=== PATIENT | female | born 1970 | race Caucasian/White ===

== ENCOUNTER 2016-11-27 14:59 | Emergency (ER) | payer MEDICARE, MEDICAID ==
[2016-11-27 15:16] VITALS: RESP 18; TEMP 98.2
--- NOTE | 2016-11-27 16:26 | C.PDOC ---
History Of Present Illness 46-year-old female, PMHx includes Left knee OA s/p orthoscopic surgery 1 yr ago , comes in for evaluation of Left knee pain that worsened this morning while at PT. Pain is aching, constant but worse with knee bending. Secondary complaint is non-traumatic low back pain. Pt denies known direct trauma or injury, fever, chills, skin changes over knee, swelling, denies deformity, weakness, sensory or vascular deficits to Left leg, denies left calf pain. Pt was seen in ED 07/27 for same complaint. Chief Complaint (Nursing): Lower Extremity Problem/Injury History Per: Patient History/Exam Limitations: no limitations Past Medical History Reviewed: Historical Data, Nursing Documentation, Vital Signs Vital Signs: Last Vital Signs Temp 98.2 F 11/27/16 15:13 Pulse 67 11/27/16 15:13 Resp 18 11/27/16 15:13 BP 123/70 11/27/16 15:13 Pulse Ox 100 11/27/16 16:30 - Medical History PMH: Arthritis, Back Problems, Depression Family History: States: Unknown Family Hx - Social History Hx Tobacco Use: No Hx Alcohol Use: No Hx Substance Use: No - Immunization History Hx Tetanus Toxoid Vaccination: No Hx Influenza Vaccination: No Hx Pneumococcal Vaccination: No Review Of Systems Except As Marked, All Systems Reviewed And Found Negative. Constitutional: Negative for: Fever Cardiovascular: Negative for: Chest Pain Respiratory: Negative for: Shortness of Breath Gastrointestinal: Negative for: Vomiting Musculoskeletal: Positive for: Back Pain, Leg Pain Skin: Negative for: Rash Physical Exam - Physical Exam Appears: Non-toxic, No Acute Distress Skin: Warm, Dry, No Rash Eye(s): bilateral: Normal Inspection, PERRL Nose: Normal Oral Mucosa: Moist Neck: Normal ROM Respiratory: No Accessory Muscle Use Extremity: Tenderness, No Calf Tenderness, Capillary Refill (<2 seconds), No Deformity, Other Pulses: Left Femoral: Normal, Right Femoral: Normal, Left Dorsalis Pedis: Normal , Right Dorsalis Pedis: Normal Neurological/Psych: Oriented x3, Normal Speech ED Course And Treatment O2 Sat by Pulse Oximetry: 100 Disposition - Disposition Referrals: Eduard Adame, [Non-Staff] - Disposition: HOME/ ROUTINE Disposition Time: 18:30 Condition: GOOD Additional Instructions: Thank you for letting us take care of you today. Your provider was Dr. Basilio. You were treated for knee pain. The emergency medical care you received today was directed at your acute symptoms. If you were prescribed any medication, please fill it and take as directed. It may take several days for your symptoms to resolve. Return to the Emergency Department if your symptoms worsen, do not improve, or if you have any other problems. Please contact your doctor or call one of the physicians/clinics you have been referred to that are listed on the Patient Visit Information form that is included in your discharge packet. Bring any paperwork you were given at discharge with you along with any medications you are taking to your follow up visit. Our treatment cannot replace ongoing medical care by a primary care provider (PCP) outside of the emergency department. Thank you for allowing the [facility] team to be part of your care today. Do not put any weight on your left leg and follow up with your doctor tomorrow as scheduled. Prescriptions: Cyclobenzaprine [Cyclobenzaprine HCl] 10 mg PO Q8 PRN #20 tab PRN Reason: Muscle Spasm Ibuprofen [Motrin] 600 mg PO Q6 PRN #20 tab PRN Reason: Pain, Moderate (4-7) Instructions: Knee Pain (ED), Crutch Instructions (ED) Forms: Gen Discharge Inst Jamaican Print Language: MALAYSIAN - Clinical Impression Clinical Impression: Knee pain - Scribe Statement The provider has reviewed the documentation as recorded by the Toby Eagle All medical record entries made by the Pauloibmelodie were at my direction and personally dictated by me. I have reviewed the chart and agree that the record accurately reflects my personal performance of the history, physical exam, medical decision making, and the department course for this patient. I have also personally directed, reviewed, and agree with the discharge instructions and disposition.
--- NOTE | 2016-11-27 17:34 | RAD ---
PROCEDURE: Radiographs of the Lumbar Spine. HISTORY: r/o fx COMPARISON: No prior. FINDINGS: BONES: No acute compression fractures no retropulsed fragments. There is a minor low roto evoscoliosis of the lumbar spine. DISC SPACES: Mild disc space narrowing L5-S1 level more so along the posterior disc margin. . Remaining disc space heights are relatively maintained. OTHER FINDINGS: None. IMPRESSION: No acute fractures. Mild degenerative spondylosis L5-S1 level. Minor levoscoliosis as described
--- NOTE | 2016-11-27 17:37 | RAD ---
PROCEDURE: Pelvis left hip dated 11/27/2016 HISTORY: r/o fx COMPARISON: Comparison made with prior radiographs of the left hip and left femur 10/27/2014 TECHNIQUE: AP views of the pelvis left hip and frogleg lateral view left hip performed FINDINGS: Current study reveals no evidence of acute displaced fracture nor dislocation. The osseous structures intact. Both femoral heads are appropriately located within the respective acetabula. Joint spaces appear relatively preserved. Note again made of multiple tiny calcifications likely representing calcified pelvic phleboliths overlying the inferior aspect of the true pelvis bilateral IMPRESSION: No acute fractures. Consider followup studies if symptoms persist or occult fracture suspected clinically
[2016-11-27 19:07] VITALS: BP 109/76; PULSE 82; O2SAT 98
--- NOTE | 2016-11-28 07:22 | RAD ---
PROCEDURE: Left Knee Radiographs. HISTORY: Pain. COMPARISON: None. FINDINGS: BONES: Normal. No fracture. JOINTS: Mild osteoarthritic changes are noted. JOINT EFFUSION: No significant joint effusion noted. OTHER FINDINGS: None. IMPRESSION: No evidence of acute fracture or dislocation. Mild osteoarthritic changes.
== END 2016-11-27 19:06 | disposition home or self-care (01) ==
LOC: C.ER 14:59
DX: M25.562 Pain in left knee (principal)

== ENCOUNTER 2017-03-14 23:26 | Emergency (ER) | payer MEDICARE, MEDICAID ==
[2017-03-14 23:49] VITALS: BP 110/71; PULSE 71; RESP 18; TEMP 97.8; O2SAT 98
--- NOTE | 2017-03-15 00:24 | C.PDOC ---
History Of Present Illness 46 year old female presents to the ED with complaints of increasing pain to the left knee radiating to left thigh beginning yesterday after PT. Patient notes a history of a left knee replacement in February 2017 and is compliant with medications usually with relief but with no relief of pain. She denies recent trauma or fever. Time Seen by Provider: 03/14/17 23:50 Chief Complaint (Nursing): Lower Extremity Problem/Injury History/Exam Limitations: no limitations Onset/Duration Of Symptoms: Worse Since (increasing pain today ) Current Symptoms Are (Timing): Still Present Recent travel outside of the [place]: No Additional History Per: Prior Records - Knee Description Of Injury: Other (Knee replacement in February 2017 ) Past Medical History Reviewed: Historical Data, Nursing Documentation, Vital Signs Vital Signs: Last Vital Signs Temp 97.8 F 03/14/17 23:45 Pulse 71 03/14/17 23:45 Resp 18 03/14/17 23:45 BP 110/71 03/14/17 23:45 Pulse Ox 98 03/15/17 04:09 - Medical History PMH: Arthritis, Back Problems, Depression Family History: States: Unknown Family Hx - Social History Hx Tobacco Use: No Hx Alcohol Use: No Hx Substance Use: No - Immunization History Hx Tetanus Toxoid Vaccination: No Hx Influenza Vaccination: No Hx Pneumococcal Vaccination: No Review Of Systems Constitutional: Negative for: Fever, Chills Cardiovascular: Negative for: Chest Pain Respiratory: Negative for: Shortness of Breath Gastrointestinal: Negative for: Nausea, Vomiting, Abdominal Pain, Diarrhea Musculoskeletal: Positive for: Leg Pain (left knee pain radiating to left thigh ) Physical Exam - Physical Exam Appears: Non-toxic, No Acute Distress Skin: Warm, Dry Head: Atraumatic Eye(s): bilateral: Normal Inspection, PERRL, EOMI Oral Mucosa: Moist Neck: Supple Chest: Symmetrical, No Deformity Cardiovascular: Rhythm Regular Respiratory: Normal Breath Sounds, No Rhonchi, No Wheezing Extremity: Normal ROM (Full ROM however causes pain in left knee ), Tenderness ( on palpation), Capillary Refill (good capillary refill, less than 2 seconds ), No Deformity, Swelling (minimal swelling to the left knee. No erythema and no warmth. ), Other (scar to anterior aspect of the left knee, no erythema, no warmth) Extremity: Bilateral: Normal Color And Temperature Neurological/Psych: Oriented x3, Normal Speech, Normal Cognition, Normal Cranial Nerves, Normal Motor, Normal Sensation Gait: Steady (with mild limp) ED Course And Treatment O2 Sat by Pulse Oximetry: 98 (room air ) Pulse Ox Interpretation: Normal Progress Note: Patient refused Knee XR- states will see orthopedist in 1- 2 days and was given Toradol IM and instructed to follow up with orthopedist. Disposition Counseled Patient/Family Regarding: Diagnosis, Need For Followup, Rx Given - Disposition Referrals: Your orthopedist, private [Other] Disposition: HOME/ ROUTINE Disposition Time: 00:25 Condition: STABLE Additional Instructions: Elevate leg Apply ICE Use knee brace for support Continue current pain meds Return to ER if worse Instructions: Knee Pain (ED) Forms: [email or web address] (Chadian) Print Language: PUERTO RICAN - Clinical Impression Clinical Impression: Knee pain - Scribe Statement The provider has reviewed the documentation as recorded by the Scribe Varsha Cassidy All medical record entries made by the Scribe were at my direction and personally dictated by me. I have reviewed the chart and agree that the record accurately reflects my personal performance of the history, physical exam, medical decision making, and the department course for this patient. I have also personally directed, reviewed, and agree with the discharge instructions and disposition.
== END 2017-03-15 00:42 | disposition home or self-care (01) ==
LOC: C.ER 23:26
DX: M25.562 Pain in left knee (principal)
CPT/HCPCS: 96372; 99283; J1885

== ENCOUNTER 2017-09-28 18:09 | Emergency (ER) | payer MEDICARE, MEDICAID ==
[2017-09-28 19:55] VITALS: O2SAT 100
--- NOTE | 2017-09-28 20:37 | C.PDOC ---
History Of Present Illness 47 year old female presents to the ED for evaluation of flu like symptoms x2-3 days. Patient complains of body aches, fevers, cough, and sore throat. No vomiting or diarrhea. No recent travel. No other acute complaints at this time. Time Seen by Provider: 09/28/17 20:07 Chief Complaint (Nursing): Flu-like Symptoms History Per: Patient History/Exam Limitations: no limitations Onset/Duration Of Symptoms: Days Current Symptoms Are (Timing): Still Present Location Of Pain: Throat, Diffuse Myalgias Associated Symptoms: Fever, Sore Throat, Cough, Myalgias. denies: Vomiting Recent travel outside of the [place]: No Past Medical History Reviewed: Historical Data, Nursing Documentation, Vital Signs Vital Signs: Last Vital Signs Temp 98.4 F 09/28/17 21:47 Pulse 70 09/28/17 21:47 Resp 20 09/28/17 21:47 BP 128/70 09/28/17 21:47 Pulse Ox 100 09/29/17 03:16 - Medical History PMH: Arthritis, Back Problems, Depression Family History: States: Unknown Family Hx - Social History Hx Tobacco Use: No Hx Alcohol Use: No Hx Substance Use: No - Immunization History Hx Tetanus Toxoid Vaccination: No Hx Influenza Vaccination: No Hx Pneumococcal Vaccination: No Review Of Systems Constitutional: Positive for: Fever. Negative for: Chills ENT: Positive for: Throat Pain. Negative for: Ear Pain Cardiovascular: Negative for: Chest Pain Respiratory: Positive for: Cough. Negative for: Shortness of Breath Gastrointestinal: Negative for: Nausea, Vomiting, Abdominal Pain, Diarrhea Musculoskeletal: Positive for: Other (Myalgias ) Skin: Negative for: Rash Neurological: Negative for: Headache Physical Exam - Physical Exam Appears: Well, No Acute Distress Skin: Normal Color, Warm, Dry Head: Atraumatic, Normacephalic Eye(s): bilateral: Normal Inspection, PERRL, EOMI Nose: Normal Oral Mucosa: Moist Tongue: Normal Appearing Lips: Normal Appearing Throat: Normal Neck: Normal, Normal ROM, Supple Cardiovascular: Rhythm Regular Respiratory: Normal Breath Sounds Gastrointestinal/Abdominal: Soft, No Tenderness Back: Normal Inspection Extremity: Normal ROM, No Deformity Neurological/Psych: Oriented x3, Normal Speech ED Course And Treatment O2 Sat by Pulse Oximetry: 100 Medical Decision Making Medical Decision Making: Impression: influenza, viral illness Will give ibuprofen Patient feeling improved in no respiratory distress, tolerating PO well, VSS. Will discharge home with prescription for tamiflu. Return precautions discussed with pt who agreed with the plan Disposition Counseled Patient/Family Regarding: Diagnosis, Need For Followup, Rx Given - Disposition Referrals: [facility] [Outside] Disposition: HOME/ ROUTINE Disposition Time: 20:34 Condition: STABLE Additional Instructions: Please follow up in clinic or with your doctor Increase PO fluids Return to ER if worse Prescriptions: Benzonatate [Tessalon Perles] 100 mg PO TID #20 sgl Ibuprofen [Motrin] 600 mg PO Q6H #20 tab Oseltamivir [Tamiflu] 75 mg PO BID #10 cap Instructions: Viral Upper Respiratory Infection, Adult (DC) Forms: [employer] (Australian) Print Language: NAURUAN - Clinical Impression Clinical Impression: Influenza-like illness - Scribe Statement The provider has reviewed the documentation as recorded by the Scribe The provider has reviewed the documentation as recorded by the Scribe (Gerald Goodwin)
[2017-09-28 21:47] VITALS: BP 128/70; PULSE 70; RESP 20; TEMP 98.4
== END 2017-09-28 21:47 | disposition home or self-care (01) ==
LOC: C.ER 18:09
DX: J11.1 Influenza due to unidentified influenza virus with other respiratory manifestations (principal)

== ENCOUNTER 2018-03-29 14:28 | Emergency (ER) | payer MEDICARE, MEDICAID ==
[2018-03-29 15:06] VITALS: TEMP 97.6
[2018-03-29] MEDS ORDERED: Dexamethasone 4 mg/1 ml IM STA (15:27)
--- NOTE | 2018-03-29 16:10 | C.PDOC ---
History Of Present Illness 47 year old female with PMHx of back pain presents to the ED c/o worsening back pain since Thursday. Patient states she fell pain radiating down her legs, fells weakness in bilateral legs as well. Patient states she has oxycodone at home but is not helping with her pain. Patient reports she had an epidural injection last year, which she think wore out. Patient denies injury, fall, trauma, numbness, CP, abdominal pain, SOB, bowel incontinence, saddles anesthesia. Time Seen by Provider: 03/29/18 15:02 Chief Complaint (Nursing): Back Pain History Per: Patient History/Exam Limitations: no limitations Onset/Duration Of Symptoms: Days (5) Current Symptoms Are (Timing): Still Present Quality Of Discomfort: Unable To Describe Previous Symptoms: Back Pain Exacerbating Factor(s): Movement Recent travel outside of the [place]: No Additional History Per: Patient Past Medical History Reviewed: Historical Data, Nursing Documentation, Vital Signs Vital Signs: Last Vital Signs Temp 97.6 F 03/29/18 15:05 Pulse 88 03/29/18 17:52 Resp 16 03/29/18 17:52 BP 121/78 03/29/18 17:52 Pulse Ox 98 03/29/18 17:52 - Medical History PMH: Arthritis, Back Problems, Depression Surgical History: No Surg Hx Family History: States: Unknown Family Hx - Social History Hx Tobacco Use: No Hx Alcohol Use: No Hx Substance Use: No - Immunization History Hx Tetanus Toxoid Vaccination: No Hx Influenza Vaccination: No Hx Pneumococcal Vaccination: No Review Of Systems Constitutional: Negative for: Fever, Chills Cardiovascular: Negative for: Chest Pain, Palpitations Respiratory: Negative for: Cough, Shortness of Breath Gastrointestinal: Negative for: Nausea, Vomiting, Abdominal Pain Musculoskeletal: Positive for: Back Pain, Leg Pain Skin: Negative for: Rash Neurological: Positive for: Weakness. Negative for: Numbness Physical Exam - Physical Exam Appears: Non-toxic, No Acute Distress Skin: Normal Color, Warm, Dry, No Rash Head: Atraumatic, Normacephalic Eye(s): bilateral: Normal Inspection Oral Mucosa: Moist Neck: Normal ROM, No Midline Cervical Tenderness, Supple Chest: Symmetrical Cardiovascular: Rhythm Regular Respiratory: Normal Breath Sounds, No Rales, No Rhonchi, No Wheezing Gastrointestinal/Abdominal: Soft, No Tenderness, No Guarding, No Rebound Back: No Vertebral Tenderness, Paraspinal Tenderness (diffuse paralumbar) Extremity: Normal ROM, No Tenderness, Capillary Refill (< 2 seconds), No Swelling, Other (left knee scar) Neurological/Psych: Oriented x3, Normal Speech, Normal Motor, Normal Sensation Gait: Steady ED Course And Treatment O2 Sat by Pulse Oximetry: 99 (ON RA) Pulse Ox Interpretation: Normal Medical Decision Making Medical Decision Making: Plan: * Decadron 10 mg PO * Toradol 30 mg IM On re-exam, the patient is resting comfortably. Lungs are CTA, heart is RRR, abdomen is soft, non-tender and tolerating PO well. FOllow up with the medical doctor within 1-2 days. Return if worsened. Disposition - Disposition Referrals: [facility] [Outside] Disposition: HOME/ ROUTINE Disposition Time: 16:28 Condition: GOOD Additional Instructions: Follow up with the medical doctor within 2-3 days. return if worsened. Prescriptions: Lidocaine 5% [Lidoderm] 1 each TP DAILY #10 patch predniSONE [Prednisone] 20 mg PO BID #10 tab Instructions: Sciatica Forms: [employer] (Italian) Print Language: SOUTH KOREAN - Clinical Impression Clinical Impression: Sciatica - PA / HAIR [employer]ING [employer]TER / Resident Statement MD/DO has reviewed & agrees with the documentation as recorded. - Scribe Statement The provider has reviewed the documentation as recorded by the Scribe Isaias Mata All medical record entries made by the Scribe were at my direction and personally dictated by me. I have reviewed the chart and agree that the record accurately reflects my personal performance of the history, physical exam, medical decision making, and the department course for this patient. I have also personally directed, reviewed, and agree with the discharge instructions and disposition.
[2018-03-29] MEDS ORDERED: Morphine 4 MG/ML VIAL ONE (17:14)
[2018-03-29 17:54] VITALS: BP 121/78; PULSE 88; RESP 16
[2018-03-29 22:46] VITALS: O2SAT 99
== END 2018-03-29 17:52 | disposition home or self-care (01) ==
LOC: C.ER 14:28
DX: M54.30 Sciatica, unspecified side (principal)
CPT/HCPCS: 96372; 99283; J1100; J1885; J2270

== ENCOUNTER 2018-08-26 11:18 | Emergency (ER) | payer MEDICARE, MEDICAID ==
[2018-08-26 12:49] LABS: BASO % 0.2 % (0.0-2.0); EOS # 0.1 K/uL (0.0-0.7); EOS % 1.3 % (0.0-4.0); HEMOGLOBIN 13.6 g/dL (11.0-16.0); LYMPH # 1.1 K/uL (1.0-4.3); LYMPH % 22.5 % (20.0-40.0); MEAN CELL VOLUME 90.7 fL (81.0-99.0); MEAN CORPUSCULAR HEMOGLOBIN 28.7 pg (27.0-31.0); MEAN CORPUSCULAR HGB CONC 31.7 g/dL (33.0-37.0); MEAN PLATELET VOLUME 8.5 fL (7.2-11.7); MONO # 0.5 K/uL (0.0-0.8); MONO % 9.6 % (0.0-10.0); NEUT # 3.3 K/uL (1.8-7.0); NEUT % 66.4 % (50.0-75.0); NRBC % 0.1 % (0.0-2.0); RBC 4.74 Mil/uL (3.80-5.20); RED CELL DISTRIBUTION WIDTH 14.9 % (11.5-14.5); WHITE BLOOD COUNT 4.9 K/uL (4.8-10.8)
[2018-08-26 12:50] LABS: HCG,QUALITATIVE URINE NEGATIVE (NEGATIVE)
[2018-08-26 12:55] LABS: SQUAMOUS EPITHIAL 1 /hpf (0-5); URINE BILIRUBIN NEGATIVE (NEGATIVE); URINE BLOOD 1+ (NEGATIVE); URINE CLARITY Clear (Clear); URINE COLOR Yellow (YELLOW); URINE GLUCOSE (UA) NORMAL (Normal); URINE LEUKOCYTE ESTERASE NEG Leu/uL (Negative); URINE PROTEIN 1+ mg/dL (NEGATIVE); URINE UROBILINOGEN NORMAL mg/dL (0.2-1.0)
[2018-08-26 13:00] LABS: BLOOD UREA NITROGEN 15 mg/dL (7-17); GFR NON-AFRICAN AMERICAN > 60
[2018-08-26 13:01] LABS: ALB/GLOB RATIO 1.2 (1.0-2.1); ALBUMIN 4.4 g/dL (3.5-5.0); ALT/SGPT 24 U/L (9-52); AST/SGOT 29 U/L (14-36); CALCIUM 8.8 mg/dl (8.6-10.4); LIPASE 66 U/L (23-300)
--- NOTE | 2018-08-26 13:04 | C.PDOC ---
History Of Present Illness 48yo female, comes to ER complaining of diffuse abdominal pain and watery diarrhea x 3 days. Patient reports associated nausea as well. She denies any vomiting, chest pain, shortness of breath, fever, dysruia or hematuira. She also is complaining of chronic low back and knee pain. Time Seen by Provider: 08/26/18 11:51 Chief Complaint (Nursing): Abdominal Pain History Per: Patient History/Exam Limitations: no limitations Onset/Duration Of Symptoms: Days Current Symptoms Are (Timing): Still Present Location Of Pain/Discomfort: Diffuse Quality Of Discomfort: "Pain" Associated Symptoms: Nausea. denies: Fever, Chills, Vomiting, Diarrhea, Urinary Symptoms Additional History Per: Patient Past Medical History Reviewed: Historical Data, Nursing Documentation, Vital Signs Vital Signs: Last Vital Signs Temp 97.3 F L 08/26/18 11:43 Pulse 74 08/26/18 11:43 Resp 18 08/26/18 11:43 BP 105/74 08/26/18 11:43 Pulse Ox 99 08/26/18 11:43 - Medical History PMH: Arthritis, Back Problems, Depression Surgical History: No Surg Hx Family History: States: No Known Family Hx - Social History Hx Tobacco Use: No Hx Alcohol Use: No Hx Substance Use: No - Immunization History Hx Tetanus Toxoid Vaccination: No Hx Influenza Vaccination: No Hx Pneumococcal Vaccination: No Review Of Systems Constitutional: Negative for: Fever, Chills Cardiovascular: Negative for: Chest Pain, Palpitations Respiratory: Negative for: Cough, Shortness of Breath Gastrointestinal: Positive for: Nausea, Abdominal Pain. Negative for: Vomiting, Diarrhea Genitourinary: Negative for: Dysuria, Hematuria Musculoskeletal: Positive for: Back Pain, Other (knee pain) Physical Exam - Physical Exam Appears: Well, Non-toxic, Other (mild distress) Skin: Normal Color, Warm Head: Normacephalic Eye(s): bilateral: Normal Inspection Oral Mucosa: Moist Neck: Supple Cardiovascular: Rhythm Regular Respiratory: Normal Breath Sounds, No Rales, No Rhonchi, No Wheezing Gastrointestinal/Abdominal: Bowel Sounds, Soft, Tenderness (diffuse), No Guarding, No Rebound Back: Normal Inspection, No CVA Tenderness Extremity: Normal ROM Neurological/Psych: Oriented x3 ED Course And Treatment - Laboratory Results Result Diagrams: 08/26/18 12:40 08/26/18 12:40 Lab Results: Urine HCG, Qual Negative (NEGATIVE) 08/26/18 12:40 Urine HCG, Qual Negative (NEGATIVE) 08/26/18 12:40 O2 Sat by Pulse Oximetry: 99 (RA) Pulse Ox Interpretation: Normal Progress Note: Blood work and urinalysis ordered; patient given Fluids, PO Bentyl and PO tylenol. 1338: Labs reviewed, CT Abdomen/Pelvis ordered. Patient signed out to Dr. Henry pending CT. Disposition - Disposition Disposition Time: 13:40 Condition: STABLE Forms: [employer] (Ukrainian) - Clinical Impression Clinical Impression: Abdominal pain, Diarrhea - Scribe Statement The provider has reviewed the documentation as recorded by the Toby Christy Provider Attestation: All medical record entries made by the Toby were at my direction and personally dictated by me. I have reviewed the chart and agree that the record accurately reflects my personal performance of the history, physical exam, medical decision making, and the department course for this patient. I have also personally directed, reviewed, and agree with the discharge instructions and disposition. Physician Patient Turnover Patient Signed Over To: Sherry Henry Handoff Comments: Pending CT
[2018-08-26] MEDS ORDERED: Sodium Chloride 0.9% 1,000 ML ONE (13:12)
[2018-08-26] MEDS: Sodium Chloride 0.9% 1,000 ML IV ONE (13:15)
--- NOTE | 2018-08-26 15:39 | CT ---
PROCEDURE: CT Abdomen and Pelvis without Oral or IV contrast. HISTORY: ABD PAIN, DIARRHEA COMPARISON: None available. TECHNIQUE: Contiguous axial images of the abdomen and pelvis. No oral or IV contrast administered. Coronal and Sagittal reformats generated and reviewed. Radiation dose: Total exam DLP = 775.35 mGy-cm. This CT exam was performed using one or more of the following dose reduction techniques: Automated exposure control, adjustment of the mA and/or kV according to patient size, and/or use of iterative reconstruction technique. FINDINGS: There is limited evaluation of the solid organs without the administration of IV contrast. LOWER THORAX: No visible consolidation, pleural effusion, or pneumothorax. LIVER: Unremarkable unenhanced appearance. GALLBLADDER AND BILE DUCTS: Unremarkable unenhanced appearance. PANCREAS: Unremarkable unenhanced appearance. SPLEEN: Unremarkable unenhanced appearance. ADRENALS: Unremarkable unenhanced appearance. KIDNEYS AND URETERS: No hydronephrosis or obstructing renal calculus. Too small to characterize 7 mm right renal hypodensity, statistically likely a cyst. BLADDER: The urinary bladder appears unremarkable. REPRODUCTIVE: Uterus is present. APPENDIX: The appendix appears within normal limits of caliber. No secondary signs of acute appendicitis. BOWEL: Gastric wall appears thickened on nondistended stomach. Lack of oral contrast limits evaluation for bowel pathology. The bowel loops appear within normal limits of caliber without evidence of intestinal obstruction. PERITONEUM: No significant free fluid. No definite free air. LYMPH NODES: Nonspecific sub cm mesenteric lymph nodes. VASCULATURE: No atherosclerotic calcifications of the aorta. No aortic aneurysm. BONES: Mild scoliosis. Degenerative changes. OTHER FINDINGS: None. IMPRESSION: Gastric wall thickening presumably exaggerated by nondistention. Correlate clinically. Pathology such as gastritis cannot be excluded. Outpatient follow-up with endoscopy may be considered if indicated. Additional incidental findings as above.
[2018-08-26 15:44] VITALS: TEMP 98.2
[2018-08-26 17:28] VITALS: BP 100/67; PULSE 83; RESP 20; O2SAT 100
== END 2018-08-26 17:28 | disposition home or self-care (01) ==
LOC: C.ER 11:18
DX: R19.7 Diarrhea, unspecified (principal); R10.84 Generalized abdominal pain; F32.9 Major depressive disorder, single episode, unspecified
CPT/HCPCS: 74176; 80053; 81001; 83690; 84703; 85025; 96360; 99285; J7030

== ENCOUNTER 2018-10-03 18:29 | Emergency (ER) | payer MEDICARE, MEDICAID ==
[2018-10-03 18:41] VITALS: O2SAT 100
--- NOTE | 2018-10-03 19:51 | C.PDOC ---
History Of Present Illness 48 year old female presents to the emergency department with recurrence of intermittent nose bleeds from right nostril for the last two weeks. Patient reports that she was seen by her PMD and advised F/U with ENT. Patient states that her nosebleed had resolved but she has had a few intermittent episodes with the last one being today [employer]. Patient complains of nasal congestion but denies URI symptoms, trauma, headache, fever, and dizziness. Time Seen by Provider: 10/03/18 19:18 Chief Complaint (Nursing): ENT Problem History Per: Patient History/Exam Limitations: None Onset/Duration Of Symptoms: Intermittent Episodes, Other (2 weeks) Current Symptoms Are (Timing): Still Present Quality (Mouth/Throat): Drainage (blood) Symptoms Have Been: Episodic Past Medical History Reviewed: Historical Data, Nursing Documentation, Vital Signs Vital Signs: Last Vital Signs Temp 98.3 F 10/03/18 18:33 Pulse 66 10/03/18 18:33 Resp 18 10/03/18 18:33 BP 127/86 10/03/18 18:33 Pulse Ox 100 10/03/18 18:33 - Medical History PMH: Arthritis, Back Problems, Depression Surgical History: No Surg Hx Family History: States: No Known Family Hx - Social History Hx Tobacco Use: No Hx Alcohol Use: No Hx Substance Use: No - Immunization History Hx Tetanus Toxoid Vaccination: No Hx Influenza Vaccination: No Hx Pneumococcal Vaccination: No Review Of Systems Except As Marked, All Systems Reviewed And Found Negative. Constitutional: Negative for: Fever, Chills ENT: Positive for: Nose Discharge (blood), Nose Congestion Respiratory: Negative for: Cough, Shortness of Breath Neurological: Negative for: Headache, Dizziness Physical Exam - Physical Exam Appears: Non-toxic, No Acute Distress Skin: Normal Color, Warm, Dry Head: Atraumatic, Normacephalic Eye(s): bilateral: Normal Inspection, PERRL, EOMI Nose: No Tenderness, No Septal Hematoma, Other (no active bleeding in right nare, right nasal turbinate enlarged, no abrasion, no lesion) Oral Mucosa: Moist Neck: Normal, Supple Chest: Symmetrical, No Tenderness Neurological/Psych: Oriented x3, Normal Speech, Normal Cognition ED Course And Treatment O2 Sat by Pulse Oximetry: 100 (RA) Pulse Ox Interpretation: Normal Disposition Counseled Patient/Family Regarding: Diagnosis, Need For Followup - Disposition Referrals: Behin,Deny, MD [Staff Provider] - Disposition: HOME/ ROUTINE Disposition Time: 19:48 Condition: STABLE Additional Instructions: Please follow up with ENT Use nasal pray as directed Use small amount of vaselin to moisturize nares return to ER if worse Prescriptions: Fluticasone Nasal [Flonase] 1 actuation NS BID #1 spr Instructions: Nosebleeds (DC) Forms: [employer] (Amharic) Print Language: MONGOLIAN - Clinical Impression Clinical Impression: Epistaxis, recurrent, Nasal congestion - 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 - Scribe Statement The provider has reviewed the documentation as recorded by the Scribe (Satnam Garcia) All medical record entries made by the Scribe were at my direction and personally dictated by me. I have reviewed the chart and agree that the record a ccurately reflects my personal performance of the history, physical exam, medical decision making, and the department course for this patient. I have also personally directed, reviewed, and agree with the discharge instructions and disposition.
[2018-10-03 20:03] VITALS: BP 118/83; PULSE 63; RESP 20; TEMP 98
== END 2018-10-03 20:04 | disposition home or self-care (01) ==
LOC: C.ER 18:29
DX: R04.0 Epistaxis (principal); R09.81 Nasal congestion

== ENCOUNTER 2018-12-08 18:54 | Emergency (ER) | payer MEDICARE, MEDICAID ==
[2018-12-08] MEDS ORDERED: Lidocaine 5% Patch TD STA (20:03)
[2018-12-08] MEDS ORDERED: Lidocaine 5% Patch TD ONE (20:44)
[2018-12-08] MEDS ORDERED: Dexamethasone 4 mg/1 ml IM STA (20:53)
--- NOTE | 2018-12-08 21:30 | C.PDOC ---
History Of Present Illness 48 y/o female presents to ED for medical evaluation of lower back pain since 11/19/18. She states that she has a history of Sciatica and is followed by pain management and recently received injections to her back. She states that since then, she has not noticed any improvement. She has noted worsening pain and has not been revaluated. She denies any dizziness, weakness, and lower extremity pain. Chief Complaint (Nursing): Back Pain History Per: Patient History/Exam Limitations: no limitations Onset/Duration Of Symptoms: Days Current Symptoms Are (Timing): Still Present Severity: Severe Pain Scale Rating Of: 8 Recent travel outside of the [place]: No Past Medical History Reviewed: Historical Data, Nursing Documentation, Vital Signs Vital Signs: Last Vital Signs Temp 98.0 F 12/08/18 19:35 Pulse 69 12/08/18 19:35 Resp 16 12/08/18 19:35 BP 113/75 12/08/18 19:35 Pulse Ox 98 12/08/18 19:35 Primary Care Provider: Non [facility] Provider, - Medical History PMH: Arthritis, Back Problems, Depression Family History: States: Unknown Family Hx - Social History Hx Tobacco Use: No Hx Alcohol Use: No Hx Substance Use: No - Immunization History Hx Tetanus Toxoid Vaccination: No Hx Influenza Vaccination: No Hx Pneumococcal Vaccination: No Review Of Systems Constitutional: Negative for: Fever, Chills Gastrointestinal: Negative for: Nausea, Vomiting Musculoskeletal: Positive for: Back Pain. Negative for: Neck Pain, Leg Pain Skin: Negative for: Rash, Bruising Neurological: Negative for: Headache Physical Exam - Physical Exam Appears: Non-toxic, No Acute Distress Skin: Normal Color, Warm, Dry Head: Atraumatic, Normacephalic Eye(s): bilateral: Normal Inspection Nose: Normal, No Discharge Oral Mucosa: Moist Lips: Normal Appearing Neck: Normal ROM, Supple Cardiovascular: Rhythm Regular Respiratory: Normal Breath Sounds Gastrointestinal/Abdominal: Soft, No Tenderness Back: No CVA Tenderness, Vertebral Tenderness (lumbar spine), Decreased ROM, Paraspinal Tenderness Extremity: Bilateral: Atraumatic Neurological/Psych: Oriented x3, Normal Speech, Normal Cognition, Normal Motor, Normal Sensation ED Course And Treatment O2 Sat by Pulse Oximetry: 98 Medical Decision Making Medical Decision Making: plan: Dexamethasone, Toradol, adn Lidoderm patch given Reassessment: patient states that her pain has improved and is resting comfortably stable for discharge Disposition Counseled Patient/Family Regarding: Diagnosis, Need For Followup, Rx Given - Disposition Referrals: [facility] [Outside] Disposition: HOME/ ROUTINE Disposition Time: 21:27 Condition: IMPROVED Additional Instructions: Continue meds as instructed Rest and Ice the area Follow up with PMD or pain management Return to the ED if symptoms worsen Prescriptions: Lidocaine 5% [Lidoderm] 1 ea TD PRN PRN #30 patch PRN Reason: Pain, Moderate (4-7) predniSONE [predniSONE Tab] 20 mg PO BID #10 tab Instructions: Sciatica (DC) Forms: [employer] (Malian) Print Language: PALESTINIAN - Clinical Impression Clinical Impression: Low back pain, Sciatica - 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
[2018-12-08 21:57] VITALS: BP 110/69; PULSE 60; RESP 18; TEMP 97.9
[2018-12-08 21:59] VITALS: O2SAT 98
== END 2018-12-08 21:57 | disposition home or self-care (01) ==
LOC: C.ER 18:54
DX: M54.40 Lumbago with sciatica, unspecified side (principal)
CPT/HCPCS: 81025; 96372; 99284; J1100; J1885